=== PATIENT | female | born 1960 | race Caucasian/White ===

== ENCOUNTER 2023-11-20 08:05 | Observation (INO) | payer OTHER, SELFPAY ==
[2023-11-20] VITALS (103 sets, daily range): BP systolic 156–227; BP diastolic 75–173; PULSE 59–166; TEMP 36.5–36.9; O2SAT 91–97; BMI 28.2; BMI 26.6
--- NOTE | 2023-11-20 08:29 | ECG_ITS ---
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
--- NOTE | 2023-11-20 08:30 | CT_ITS ---
[address] [address] Patient Name: JOSE LUIS MALIN MRN: [id number] date: 1960 Sex: F Assigned Patient Location: ER Current Patient Location: .[facility] Accession/Order Number: [id number] Exam Date: 11/20/2023 10:04 Report Date: 11/20/2023 10:59 At the request of: CHAD CADET Procedure: CT angio chest EXAMINATION: CT angio chest HISTORY: Pulmonary embolism eval; shortness of breath COMPARISON: No relevant comparison available. TECHNIQUE: Multi-planar CT images were created with IV contrast. Axial, Coronal, and Sagittal images. Dose reduction techniques were achieved by using automated exposure control and/or adjustment of mA and/or kV according to patient size and/or use of iterative reconstruction technique. 3-D reconstruction was performed on a separate workstation. FINDINGS: VASCULATURE: No pulmonary edema. LUNGS: Mild emphysematous changes. Mild haziness of the lung parenchyma bilaterally without focal opacities/infiltrates. PLEURA: Bilateral pleural effusions; 1.8 cm in thickness on right, 0.8 cm on left. VIRIDIANA: Calcified lymph nodes compatible with chronic granulomatous disease. MEDIASTINUM: Calcified lymph nodes. CARDIAC: Cardiomegaly. No pericardial effusion. AORTA: No aneurysm or dissection. CHEST WALL: No mass or axillary adenopathy. BONES: L1 marked compression fracture with retropulsion of the posterior wall causing marked central canal narrowing. LIMITED ABDOMEN: No suspicious findings. Limited images of the upper abdomen. OTHER: Negative. CT/CT angio chest IMPRESSION: 1. No pulmonary embolism. 2. Moderate right, small left pleural effusions. 3. Bilateral mild pulmonary edema versus atelectasis. 4. Cardiomegaly. No pericardial effusion. 5. L1 marked compression fracture causing central canal narrowing. This is age indeterminant with no prior studies for comparison, but given the increased density of the remaining marrow cavity, I suspect there is at least an acute to subacute component. Electronically authenticated by: ANDER RAINEY Date: 11/20/2023 10:59
--- NOTE | 2023-11-20 08:35 | ED_ITS ---
HPI HPI - General Adult General Chief complaint: Shortness of Breath/Dyspnea Stated complaint: SOB Time Seen by Provider: 11/20/23 08:12 Source: patient Mode of arrival: walk-in Limitations: no limitations History of Present Illness HPI narrative: 63-year-old female to the emergency department with chief complaint of shortness of breath. Patient reports for the last month she has felt mildly short of breath. It limits her activity. She reports occasional squeezing sensation in her chest. She reports that she has had a mild intermittent cough. She is a daily smoker. She has been taking Claritin-D and NyQuil to try to help her symptoms however this has not improved it. She denies any cardiac history. No history of atrial fibrillation/a flutter. She has never seen a timekeeping supervisor. She denies any other medications. Related Data Home Medications ?Medication ?Instructions ?Recorded ?Confirmed No Known Home Medications 11/20/23 11/20/23 Allergies Allergy/AdvReac Type Severity Reaction Status Date / Time No Known Drug Allergies Allergy Verified 11/20/23 08:14 Opioid HPI Opioid Management Most Recent Opioid Data: Last Pain Assessment 11/20/23 16:00 Last ORT Total Score 0 11/20/23 12:56 Last ORT Risk Category Low Risk 11/20/23 12:56 Review of Systems ROS Status of ROS 10 or more systems reviewed and unremark able except as noted in history and below PFSH PFSH Surgical History (Updated 11/20/23 @ 13:14 by Alyse Parks RN) Hx of appendectomy ?Z90.49 - Acquired absence of other specified parts of digestive tract (ICD- 10) Family History (Updated 11/20/23 @ 16:00 by Alyse Parks RN) Other Family history of diabetes mellitus Family history of hypertension Family history of myocardial infarction Family history of stroke Social History (Updated 11/20/23 @ 13:20 by Alyse Parks RN) Within the past year, how often did you have a drink containing alcohol: 2-4 times a month Within the past year, how many standard drinks containing alcohol did you have on a typical day: 1 or 2 Within the past year, how often did you have six or more drinks on one occasion: never Total score: 0 Score interpretation: A score less than 3 is consistent with normal alcohol consumption. 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) Known occupational exposures/hazards: No Highest level of school completed/degree received: Associate degree: occupational, technical, vocational program Do you want help with school or training: No Are you now , , , , never or living with a partner: In a typical week, how many times do you talk on the telephone with family, friends, or neighbors: once per week How often do you get together with friends or relatives: never How often do you attend religious or orthodox services: never Do you belong to any clubs or organizations such as religious groups unions, fraternal or athletic groups, or school groups: no Total score: 1 Score interpretation: A score of less than or equal to 1 indicates the most socially isolated. Little interest or pleasure in doing things: not at all Feeling down, depressed, or hopeless: not at all Feel stressed/tense/nervous/anxious/difficulty sleeping: to some extent Life stressors: unknown source of stress Life stressor details: raising grandchild Due to disability, difficulty making decisions: No Do you think of yourself as: straight/heterosexual Gender Identity: female Exam Narrative Exam Narrative: VITALS: I have reviewed the triage vital signs. GENERAL: Well developed, well appearing adult in no acute distress. NEURO: Alert and oriented. Moves all extremities. Face is symmetric and expressive. EYES: PERRL. No scleral icterus or conjunctival injection. No discharge. HENT: Normocephalic, atraumatic. Hearing is grossly intact. Nares grossly patent and without discharge. Mucous membranes moist. NECK: No JVD. Patient moves neck without restriction. CARDIO: Rhythm regular. Tachycardic. No murmur, rub, or gallop. Pulses equal bilaterally in the upper and lower extremity. No lower extremity edema. PULM: Lungs clear to auscultation in all james. No wheezes, rales, or rhonchi. No conversational dyspnea. No splinting, stridor, or accessory muscle use. GI/: Abdomen is soft and non-tender. Normoactive bowel sounds. EXTREMITIES: Symmetric muscle bulk. No joint swelling. No clubbing, cyanosis, or deformity. SKIN: Warm and dry. Normal turgor. No rash or lesions appreciated. PSYCH: Mood, affect, and interaction is appropriate to the setting. Constitutional Vital Signs, click to edit/add: Last Vital Signs Temp 98.5 F 11/20/23 16:00 Pulse 105 H 11/20/23 15:45 Resp 19 11/20/23 16:00 BP 202/124 H 11/20/23 15:55 Pulse Ox 97 11/20/23 16:00 O2 Del Method Room Air 11/20/23 12:56 Course Vital Signs Vital signs: Vital Signs Temperature 97.9 F 11/20/23 08:10 Pulse Rate 118 H 11/20/23 08:10 Respiratory Rate 18 11/20/23 08:10 Blood Pressure 227/173 H 11/20/23 08:10 Pulse Oximetry 95 11/20/23 08:10 Oxygen Delivery Method Room Air 11/20/23 08:10 Temperature 98.5 F 11/20/23 16:00 Pulse Rate 105 H 11/20/23 15:45 Respiratory Rate 19 11/20/23 16:00 Blood Pressure 202/124 H 11/20/23 15:55 Pulse Oximetry 97 11/20/23 16:00 Oxygen Delivery Method Room Air 11/20/23 12:56 Medical Decision Making MDM Narrative Medical decision making narrative: 63-year-old female to the emergency department with chief complaint of shortness of breath ongoing for the last month. She is tachycardic and hypertensive. Otherwise stable vitals. The patient is afebrile. She is in no distress. EKG shows a sinus tachycardia with no ST changes. Telemetry monitoring is reviewed. She remains at a rate in the 150s with little variation. Concern for atrial flutter with 2:1 conduction vs atrial fibrillation with pseudonormalization given rate. Cardiac workup is initiated. CTA without evidence of pulmonary embolism. She does have pulmonary edema. Pleural effusions. L1 compression fracture. Compression fracture does not appear acute, no clinical correlation, no pain, no recent falls or injuries. Lab work reviewed and noted. Elevated troponin which is flat on repeats. Her BNP is significantly elevated. She will need mission for further workup of her atrial fibrillation and rapid ventricular response in the setting of congestive heart failure exacerbation. She denies any history of those prior. Heart rate did improve on Cardizem drip. Lasix was given. Case discussed the hospitalist who agreed admit the patient to his service. Medical Records Medical records reviewed: Yes I reviewed the patient's medical records Lab Data Lab results reviewed: Yes I reviewed the patient's lab results Labs: Lab Results 11/20/23 11/20/23 11/20/23 Range/Units 08:20 08:58 10:24 WBC 14.1 H (4.0-11.0) 10^3/uL RBC 4.32 (4.20-5.40) 10^6/uL Hgb 12.6 (12.0-16.0) g/dL Hct 38.7 (36.0-48.0) % MCV 89.6 (81.0-99.0) fL MCH 29.2 (26.7-34.0) pg MCHC 32.6 (29.9-35.2) g/dL RDW 14.1 (11.0-15.0) % Plt Count 372 (150-450) 10^3/uL MPV 9.6 (9.5-13.5) fL Neut % (Auto) 80.2 H (43.0-75.0) % Lymph % (Auto) 13.4 L (20.5-60.0) % [place] % (Auto) 5.7 (1.7-12.0) % Eos % (Auto) 0.1 L (0.9-7.0) % Baso % (Auto) 0.3 (0.2-2.0) % Neut # (Auto) 11.3 H (1.4-6.5) 10^3/uL Lymph # (Auto) 1.9 (1.2-3.8) 10^3/uL [place] # (Auto) 0.8 (0.3-0.8) 10^3/uL Eos # (Auto) 0.0 (0.0-0.7) 10^3/uL Baso # (Auto) 0.0 (0.0-0.1) 10^3/uL Abs Immat Gran (auto) 0.04 H (0.00-0.03) 10^3/uL Imm/Tot Granulo (auto) 0.3 (0.0-0.5) % PT 10.5 (9.0-11.6) sec INR 0.99 APTT 29.8 (22.3-36.2) sec Sodium 139 (136-145) mmol/L Potassium 3.7 (3.5-5.1) mmol/L Chloride 102 (98-107) mmol/L Carbon Dioxide 26.7 (21.0-32.0) mmol/L Anion Gap 14.0 BUN 18.0 (7.0-18.0) mg/dL Creatinine 1.14 H (0.55-1.02) mg/dL Est GFR ( Amer) 58 L (>=60) Est GFR (Non-Af Amer) 48 L (>=60) BUN/Creatinine Ratio 15.8 Glucose 110 H (74-106) mg/dL Calcium 9.2 (8.5-10.1) mg/dL Magnesium 2.2 (1.8-2.4) mg/dL Troponin I High Sens 75.2 H* 75.9 H* (4.0-51.3) pg/mL NT-Pro-B Natriuret Pep 10356.0 H* (<=900.0) pg/mL TSH & Free T4 Interp (0.358-3.740) uIU/mL 11/20/23 Range/Units 11:48 WBC (4.0-11.0) 10^3/uL RBC (4.20-5.40) 10^6/uL Hgb (12.0-16.0) g/dL Hct (36.0-48.0) % MCV (81.0-99.0) fL MCH (26.7-34.0) pg MCHC (29.9-35.2) g/dL RDW (11.0-15.0) % Plt Count (150-450) 10^3/uL MPV (9.5-13.5) fL Neut % (Auto) (43.0-75.0) % Lymph % (Auto) (20.5-60.0) % [place] % (Auto) (1.7-12.0) % Eos % (Auto) (0.9-7.0) % Baso % (Auto) (0.2-2.0) % Neut # (Auto) (1.4-6.5) 10^3/uL Lymph # (Auto) (1.2-3.8) 10^3/uL [place] # (Auto) (0.3-0.8) 10^3/uL Eos # (Auto) (0.0-0.7) 10^3/uL Baso # (Auto) (0.0-0.1) 10^3/uL Abs Immat Gran (auto) (0.00-0.03) 10^3/uL Imm/Tot Granulo (auto) (0.0-0.5) % PT (9.0-11.6) sec INR APTT (22.3-36.2) sec Sodium (136-145) mmol/L Potassium (3.5-5.1) mmol/L Chloride (98-107) mmol/L Carbon Dioxide (21.0-32.0) mmol/L Anion Gap BUN (7.0-18.0) mg/dL Creatinine (0.55-1.02) mg/dL Est GFR ( Amer) (>=60) Est GFR (Non-Af Amer) (>=60) BUN/Creatinine Ratio Glucose (74-106) mg/dL Calcium (8.5-10.1) mg/dL Magnesium (1.8-2.4) mg/dL Troponin I High Sens 79.7 H* (4.0-51.3) pg/mL NT-Pro-B Natriuret Pep (<=900.0) pg/mL TSH & Free T4 Interp 2.734 (0.358-3.740) uIU/mL Imaging Data CT scan - chest: Attestation: I have reviewed the pertinent imaging results. (Atrial fibrillation with rapid ventricular response. No STEMI. Normal QTc) Radiologist's impression: ITS Impressions Chest CTA 11/20/23 08:30 IMPRESSION: 1. No pulmonary embolism. 2. Moderate right, small left pleural effusions. 3. Bilateral mild pulmonary edema versus atelectasis. 4. Cardiomegaly. No pericardial effusion. 5. L1 marked compression fracture causing central canal narrowing. This is age indeterminant with no prior studies for comparison, but given the increased density of the remaining marrow cavity, I suspect there is at least an acute to subacute component. Electronically authenticated by: ANDER RAINEY Date: 11/20/2023 10:59 ECG Data Attestation: I personally reviewed and interpreted this ECG as follows: (Atrial fibrillation with rapid ventricular response. No STEMI. Normal QTc.) Critical Care Time Critical Care Time Critical Care Time: Yes Total Critical Care Time: 35 Attestation: Critical Care Procedure Note Authorized and Performed by: Terry Hoover DO Total critical care time: 35 min Due to a high probability of clinically significant, life threatening deterioration, the patient required my highest level of preparedness to intervene emergently and I personally spent this critical care time directly and personally managing the patient. This critical care time included obtaining a history; examining the patient; pulse oximetry; ordering and review of studies; arranging urgent treatment with development of a management plan; evaluation of patient's response to treatment; frequent reassessment; and, discussions with other providers. This critical care time was performed to assess and manage the high probability of imminent, life-threatening deterioration that could result in multi-organ failure. It was exclusive of separately billable procedures and treating other patients and teaching time. Please see MDM section and the rest of the note for further information on patient assessment and treatment. Discharge Plan Discharge Chief Complaint: Shortness of Breath/Dyspnea Clinical Impression: Acute exacerbation of CHF (congestive heart failure), Atrial fibrillation with rapid ventricular response Patient Disposition: Admitted As Inpatient Time of Disposition Decision: 12:28 Condition: Fair Discharge Date/Time: 11/20/23 12:49
[2023-11-20 08:40] LABS: Basophils Percent Auto 0.3 % (0.2-2.0); Eosinophils Percent Auto 0.1 % (0.9-7.0); Hematocrit 38.7 % (36.0-48.0); Hemoglobin 12.6 g/dL (12.0-16.0); Immature Granulocytes Abs Auto 0.04 10^3/uL (0.00-0.03); Immature Granulocytes Pct Auto 0.3 % (0.0-0.5); Lymphocytes Absolute Auto 1.9 10^3/uL (1.2-3.8); Lymphocytes Percent Auto 13.4 % (20.5-60.0); Mean Corpuscular HGB Conc 32.6 g/dL (29.9-35.2); Mean Corpuscular Hemoglobin 29.2 pg (26.7-34.0); Mean Corpuscular Volume 89.6 fL (81.0-99.0); Mean Platelet Volume 9.6 fL (9.5-13.5); Monocytes Absolute Auto 0.8 10^3/uL (0.3-0.8); Monocytes Percent Auto 5.7 % (1.7-12.0); Neutrophils Absolute Auto 11.3 10^3/uL (1.4-6.5); Neutrophils Percent Auto 80.2 % (43.0-75.0); Platelet Count 372 10^3/uL (150-450); Red Blood Count 4.32 10^6/uL (4.20-5.40); Red Cell Distribution Width 14.1 % (11.0-15.0); White Blood Count 14.1 10^3/uL (4.0-11.0)
[2023-11-20 09:02] LABS: BUN Creatinine Ratio 15.8; Calcium 9.2 mg/dL (8.5-10.1); Carbon Dioxide 26.7 mmol/L (21.0-32.0); Chloride 102 mmol/L (98-107); Estimated GFR (African America 58 (>=60); Estimated GFR (Non-African Ame 48 (>=60); Glucose 110 mg/dL (74-106); Magnesium 2.2 mg/dL (1.8-2.4); Potassium 3.7 mmol/L (3.5-5.1); Sodium 139 mmol/L (136-145)
[2023-11-20 09:04] LABS: Troponin I High Sensitivity 75.2 pg/mL (4.0-51.3)
[2023-11-20 09:20] LABS: INR 0.99; Partial Thromboplastin Time 29.8 sec (22.3-36.2); Prothrombin Time 10.5 sec (9.0-11.6)
--- NOTE | 2023-11-20 09:55 | ECG_ITS ---
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
[2023-11-20 10:51] LABS: Troponin I High Sensitivity 75.9 pg/mL (4.0-51.3)
[2023-11-20] MEDS: DILTIAZEM HCL 25 MG/5 ML VIAL 15 MG IV (11:14)
[2023-11-20] MEDS: FUROSEMIDE 40 MG/4 ML VIAL IVP ×2 (11:15→21:32)
[2023-11-20] MEDS: dilTIAZem HCL 125 MG in 0.9 % SODIUM CHLORIDE 100 ML IV (11:44)
[2023-11-20 12:13] LABS: Troponin I High Sensitivity 79.7 pg/mL (4.0-51.3)
--- NOTE | 2023-11-20 14:13 | ECG_ITS ---
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
--- NOTE | 2023-11-20 14:27 | ECG_ITS ---
The [facility] Test Date: 2023-11-20 Pat Name: JOSE LUIS MALIN Department: Room: 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
--- NOTE | 2023-11-20 14:44 | CA_ITS ---
Patient Name: JOSE LUIS MALIN MR#: [id number] : 1960 Exam Date: 11/20/2023 Ordering Doctor: DR REEMA NICHOLS . ECHOCARDIOGRAM REPORT PROCEDURE: CA ECHO DOPPLER COMPLETE INDICATIONS: CHF, elevated TROP and BNP, atrial fibrillation COMPARISON: None. DESCRIPTION: COMPLETE ECHOCARDIOGRAM Real-time transthoracic echocardiography with 2D, M-mode, spectral and color flow Doppler performed. QUALITY: Technical quality was good. LEFT VENTRICLE: Normal chamber size. Moderate to severe left ventricular hypertrophy. No evidence of increased LVOT gradients. LV EF: Global left ventricular systolic function is normal; visually estimated ejection fraction is 60 to 65%. No obvious wall motion abnormalities. DIASTOLIC: Not adequately assessed due to heart rhythm. ATRIAL SEPTUM: Visually appears intact. LEFT ATRIUM: Severe dilatation. RIGHT ATRIUM: Moderate dilatation. RIGHT VENTRICLE: Mild dilatation. Normal right ventricular systolic function. TRICUSPID VALVE: Normal mobility and thickness. No stenosis with trivial regurgitation. Unable to assess right-sided pressures due to lack of measurable tricuspid regurgitation. MITRAL VALVE: Mildly thickened with normal mobility. No evidence of mitral valve stenosis. There is no mitral annular calcification. Mild to moderate mitral regurgitation. AORTIC VALVE: Normal trileaflet appearance. No visible sclerosis. Normal leaflet mobility. No evidence of aortic valve stenosis. No aortic regurgitation. AORTIC ROOT: Normal diameter and appearance. PULMONIC VALVE: Normal thickness and mobility. No stenosis. No regurgitation. PERICARDIUM: No evidence of pericardial effusion. IVC: Collapses with inspirations. IVC is normal in size. CONCLUSION: 1. Global left ventricular systolic function is normal; visually estimated ejection fraction is 60 to 65% 2. The right ventricle is mildly dilated with normal systolic function 3. Biatrial enlargement 4. Moderate to severe left ventricular hypertrophy 5. Mild to moderate mitral regurgitation Adult Echocardiography Procedure Report Left Ventricle LVEDD (3.7 - 5.6 cm): 4.08 cm LVESD (2.2 - 4.0 cm): 2.80 cm LVIVS thickness (0.6 - 1.2 cm): 1.7 cm LVPW thickness (0.5 - 1.0 cm): 1.4 cm LVOT Max Gradient: 4.47 mm[Hg], 4.47 mm[Hg] LVOT Area (cm2): 1.06 m/s Peak Velocity (LVOT): 1.06 m/s, 1.06 m/s Mean Velocity (LVOT): 0.74 m/s LVOT Diameter 2.00 cm Left Atrium LA Volume Index (2D A2C): 67.94 ml/m2 Left Atrium Systolic Dimension: 4.52 cm Mitral Valve Mitral Valve E-Wave Peak Velocity: 0.50 m/s Right Ventricle Aorta AO Root Diam: 3.38 cm Aortic Valve AoV Area (Peak Kvng): 3.57 cm2, 3.57 cm2 Peak Velocity(Antegrade Flow): 0.93 m/s Peak Gradient(Antegrade Flow): 3.48 mm[Hg] Tricuspid Valve Pulmonic Valve Peak Velocity: 0.74 m/s Peak Gradient: 2.48 mm[Hg], 1.93 mm[Hg] Right Atrium Right Atrium Systolic Pressure: 57.97 ml, 57.97 ml Dictated by: Alondra Blakely M.D. on 11/20/2023 at 15:58 Approved by: Alondra Blakely M.D. on 11/20/2023 at 16:04
[2023-11-20] MEDS: HYDRALAZINE HCL 20 MG/ML VIAL 10 MG IVP ×2 (15:36→19:32)
[2023-11-20 15:41] LABS: TSH W/ REFLEX FT4 2.734 uIU/mL (0.358-3.740)
[2023-11-20] MEDS: METOPROLOL TARTRATE 25 MG TABLET PO ×2 (16:22→21:32)
--- NOTE | 2023-11-20 18:42 | PC.NURSE ---
Metoprolol started at 1630 per orders from physician due elevate BPs. Will continue to monitor patient and take frequent VS. See eMAR and documentation.
[2023-11-20] MEDS: APIXABAN 5 MG TABLET PO (21:32)
[2023-11-21] VITALS (55 sets, daily range): BP systolic 144–161; BP diastolic 84–108; PULSE 61–92; TEMP 36.6–36.8; O2SAT 92–97; BMI 27.0
[2023-11-21 05:20] LABS: Basophils Percent Auto 0.2 % (0.2-2.0); Eosinophils Absolute Auto 0.1 10^3/uL (0.0-0.7); Hematocrit 38.3 % (36.0-48.0); Hemoglobin 12.2 g/dL (12.0-16.0); Immature Granulocytes Abs Auto 0.02 10^3/uL (0.00-0.03); Immature Granulocytes Pct Auto 0.2 % (0.0-0.5); Lymphocytes Absolute Auto 1.9 10^3/uL (1.2-3.8); Lymphocytes Percent Auto 19.8 % (20.5-60.0); Mean Corpuscular HGB Conc 31.9 g/dL (29.9-35.2); Mean Corpuscular Hemoglobin 28.5 pg (26.7-34.0); Mean Corpuscular Volume 89.5 fL (81.0-99.0); Mean Platelet Volume 9.5 fL (9.5-13.5); Monocytes Absolute Auto 0.9 10^3/uL (0.3-0.8); Monocytes Percent Auto 9.5 % (1.7-12.0); Neutrophils Absolute Auto 6.5 10^3/uL (1.4-6.5); Neutrophils Percent Auto 69.3 % (43.0-75.0); Platelet Count 347 10^3/uL (150-450); Red Blood Count 4.28 10^6/uL (4.20-5.40); Red Cell Distribution Width 14.3 % (11.0-15.0); White Blood Count 9.4 10^3/uL (4.0-11.0)
[2023-11-21 06:29] LABS: Anion Gap 13.1; BUN Creatinine Ratio 18.9; Calcium 9.2 mg/dL (8.5-10.1); Chloride 96 mmol/L (98-107); Estimated GFR (African America 54 (>=60); Estimated GFR (Non-African Ame 44 (>=60); Glucose 93 mg/dL (74-106); Potassium 3.1 mmol/L (3.5-5.1); Sodium 137 mmol/L (136-145)
[2023-11-21] MEDS: APIXABAN 5 MG TABLET PO (09:13)
[2023-11-21] MEDS: LOSARTAN POTASSIUM 25 MG TABLET PO (09:13)
[2023-11-21] MEDS: METOPROLOL TARTRATE 25 MG TABLET PO (09:13)
[2023-11-21] MEDS: FUROSEMIDE 40 MG/4 ML VIAL IVP (09:14)
[2023-11-21] MEDS: POTASSIUM CHLORIDE 10 MEQ ER TABLET 20 MEQ PO (09:14)
--- NOTE | 2023-11-21 10:58 | PM.HP ---
HPI H&P: HPI History of Present Illness Chief complaint: SOB/A FIB/ RVR/ CHF Narrative: 63 y/o female with no home medication presents to ER with SOB x 1 month. Reports about 8 years since seen by PCP. C/o SOB with exertion and getting worse. Mild cough and sputum. SOB started to limit activity and mild chests discomfort. Started claritin-D for presumed allergies but no change in symptoms. C/o SOB when laying flat but not notice any edema. To ER and found rapid afib. CTA negative for PE but showed pulmonary edema. BNP elevated and troponin mildly elevated but stable. Admitted for treatment. Initially given IV cardizem and started drip but weaned off. Converted back to NSR and started oral metoprolol. BP remains elevated and added losartan. Getting IV lasix and good urine output. Feels well this am and SOB resolved. Opioid HPI Opioid Management Most Recent Pain and Opioid Data: Last Pain Assessment 11/21/23 10:00 Last ORT Total Score 0 11/20/23 12:56 Last ORT Risk Category Low Risk 11/20/23 12:56 Review of Systems ROS Constitutional Denies: fever, chills or fatigue Cardiovascular Denies: chest pain, palpitations or edema Respiratory Reports: shortness of breath and cough; Denies: wheezing Gastrointestinal Denies: abdominal pain, nausea, vomiting or diarrhea Genitourinary Denies: painful urination PFSH PFS Medical History (Updated 11/21/23 @ 10:55 by Haris Anguiano MD) Paroxysmal atrial fibrillation ?I48.0 - Paroxysmal atrial fibrillation (ICD-10) Chronic heart failure with preserved ejection fraction (HFpEF) ?I50.32 - Chronic diastolic (congestive) heart failure (ICD-10) Acute exacerbation of CHF (congestive heart failure) ?I50.9 - Heart failure, unspecified (ICD-10) Surgical History (Updated 11/20/23 @ 13:14 by Alyse Parks RN) Hx of appendectomy ?Z90.49 - Acquired absence of other specified parts of digestive tract (ICD-10) Family History (Updated 11/20/23 @ 16:00 by Alyse Parks RN) Other Family history of diabetes mellitus Family history of hypertension Family history of myocardial infarction Family history of stroke Social History (Updated 11/20/23 @ 13:20 by Alyse Teal, RN) Within the past year, how often did you have a drink containing alcohol: 2-4 times a month Within the past year, how many standard drinks containing alcohol did you have on a typical day: 1 or 2 Within the past year, how often did you have six or more drinks on one occasion: never Total score: 0 Score interpretation: A score less than 3 is consistent with normal alcohol consumption. 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) Known occupational exposures/hazards: No Highest level of school completed/degree received: Associate degree: occupational, technical, vocational program Do you want help with school or training: No Are you now , , , , never or living with a partner: In a typical week, how many times do you talk on the telephone with family, friends, or neighbors: once per week How often do you get together with friends or relatives: never How often do you attend confucianism or lutheran services: never Do you belong to any clubs or organizations such as confucianism groups unions, fraternal or athletic groups, or school groups: no Total score: 1 Score interpretation: A score of less than or equal to 1 indicates the most socially isolated. Little interest or pleasure in doing things: not at all Feeling down, depressed, or hopeless: not at all Feel stressed/tense/nervous/anxious/difficulty sleeping: to some extent Life stressors: unknown source of stress Life stressor details: raising grandchild Due to disability, difficulty making decisions: No Do you think of yourself as: straight/heterosexual Gender Identity: female Meds Home Medications and Allergies Home Medications ?Medication ?Instructions ?Recorded ?Confirmed ?Type No Known Home Medications 11/20/23 11/20/23 History apixaban 5 mg tablet (Eliquis) 5 mg PO BID #60 tabs 11/21/23 Rx furosemide 40 mg tablet 40 mg PO DAILY #30 tabs 11/21/23 Rx losartan 25 mg tablet 25 mg PO QD #30 tabs 11/21/23 Rx metoprolol tartrate 25 mg tablet 25 mg PO BID #60 tabs 11/21/23 Rx potassium chloride 20 mEq 20 meq PO DAILY #30 tabs 11/21/23 Rx tablet,extended release Allergies Allergy/AdvReac Type Severity Reaction Status Date / Time No Known Drug Allergies Allergy Verified 11/20/23 08:14 Exam Constitutional Vital Signs, click to edit/add: Last Vital Signs Temp 98.3 F 11/21/23 07:44 Pulse 92 H 11/21/23 10:00 Resp 17 11/21/23 10:00 BP 157/84 H 11/21/23 07:44 Pulse Ox 97 11/21/23 07:44 O2 Del Method Room Air 11/20/23 12:56 Documenting provider has reviewed patient's vital signs: yes Common normals: no apparent distress, oriented x3 and alert HENMT Common normals: normocephalic Eye Common normals: PERRL and EOMs intact bilaterally Respiratory Common normals: normal respiratory effort and clear to auscultation bilaterally Cardio Common normals: regular rate, regular rhythm, no gallops, no murmurs and no rub GI Common normals: Normal to inspection, nondistended, normoactive bowel sounds present and non-tender Extremity Common normals: no pedal edema Results Labs Labs: Short CBC 11/21/23 Range/Units 04:54 WBC 9.4 (4.0-11.0) 10^3/uL Hgb 12.2 (12.0-16.0) g/dL Hct 38.3 (36.0-48.0) % Plt Count 347 (150-450) 10^3/uL BMP 11/21/23 04:54 Sodium 137 Potassium 3.1 L Chloride 96 L Carbon Dioxide 31.0 BUN 23.0 H Creatinine 1.22 H Glucose 93 Calcium 9.2 Assessment and Plan Assessment and Plan (1) Acute heart failure with preserved ejection fraction (HFpEF): (2) Atrial fibrillation with rapid ventricular response: (3) Benign essential hypertension: Plan Presented with new onset afib and CHF. Found HTN and likely uncontrolled for years. Echo showed normal EF of 60-65%. Patient significantly improved with treatment. Will continue lasix 40 mg daily and add potassium. Continue metoprolol and losartan. Started on Eliquis. Will arrange for cardiology follow up in 1-2 weeks. Patient will need to establish with new PCP.
--- NOTE | 2023-11-21 11:54 | CM.NOTE ---
11/20) 09:[address]. [address] Anguiano discussed labs, diagnoses and meds with Maisha. Maisha verbalized understanding. Plan is for discharge today and to see cardiology as outpatient and explained to patient that she will need to get a PCP for followup.
--- NOTE | 2023-11-21 12:09 | SWNOTE1 ---
Pt is being discharged on Eliquis, which is new for her. SW provided her with free 3 day trial offer card that we have. SW let pt know to call SW if she has any issues with card. Pt voiced understanding.
--- NOTE | 2023-11-22 15:23 | CM.DCFOLLOWU ---
1st attempt 11/22/23
--- NOTE | 2023-11-23 15:30 | CM.DCFOLLOWU ---
Person spoke with: patient How are you feeling? well How is your pain? none Did you understand your discharge instructions? yes Do you have any questions about your discharge instructions? no Were you given any prescriptions at discharge? yes Were you able to get your prescriptions filled? yes Do you understand how to take your medications as ordered? yes Do you have any questions about your follow up appointment and do you plan to keep your follow up appointment? no questions, follow ups reviewed Is there anything else that you would like to discuss? no Questions/Comments/Concerns/Other: no
== END 2023-11-21 12:11 | disposition home or self-care (01) ==
LOC: ER 12:28 → ICU 11-21 07:40
PROVIDERS: Admitting Provider Family Medicine; Emergency Provider Student in an Organized Health Care Education/Training Program; Visit Provider Family Medicine
DX: I48.91 Unspecified atrial fibrillation (principal); F17.210 Nicotine dependence, cigarettes, uncomplicated; I11.0 Hypertensive heart disease with heart failure; I50.31 Acute diastolic (congestive) heart failure
CPT/HCPCS: 36415; 71275; 80048; 83735; 83880; 84443; 84484; 85025; 85610; 85730; 93005; 93306; 96365; 96366; 96375; 96376; 99285; G0378; J0360; J1940; Q9967

== ENCOUNTER 2023-11-28 08:51 | Outpatient (OUT) | payer OTHER, SELFPAY ==
--- NOTE | 2023-11-28 09:00 | RT_ITS ---
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 Findings were considered accurate and reproducible, with exception of DLCO which did not meet ATS standards. Both pre- and post-bronchodilator values utilized for spirometry. Spirometry (based on pre-bronchodilator values): -FEV1/FVC: Reduced @ 69% -FEV1: Moderately reduced @ 52% -FVC: Reduced @ 58% -OTJ23-44%: Reduced @ 32% -There is a positive bronchodilator response in FEV1. Lung volumes by plethysmography: -RV: Increased @ 125% -TLC: Normal @ 93% Diffusion capacity: -DLCO: Moderate reduction @ 67% when corrected for Hb 12.2g/dL Impressions: -Spirometry suggests moderate obstruction. There is a positive bronchodilator response. An elevated RV suggests air trapping. There is a moderately reduced diffusion capacity. Overall study suggests asthma-COPD overlap or COPD with a positive bronchodilator response. Clinical correlation required. Electronically Signed On 11-28-2023 17:46:37 EDT by Devan Park
[2023-11-28] MEDS: ALBUTEROL SULFATE 2.5 MG/3 ML VIAL NEB IH (10:18)
== END 2023-11-28 08:52 | disposition home or self-care (01) ==
LOC: CARD 08:51
PROVIDERS: Visit Provider Internal Medicine Cardiovascular Disease
DX: R06.02 Shortness of breath (principal)
CPT/HCPCS: 94060; 94726; 94729

== ENCOUNTER 2023-12-09 08:30 | Outpatient (OUT) | payer OTHER, SELFPAY ==
[2023-12-09 09:09] LABS: BUN Creatinine Ratio 20.8; Calcium 9.2 mg/dL (8.5-10.1); Carbon Dioxide 27.3 mmol/L (21.0-32.0); Chloride 104 mmol/L (98-107); Chol HDL Ratio 3.5; Cholesterol 229 mg/dL (<=200); Estimated GFR (African America 52 (>=60); Estimated GFR (Non-African Ame 43 (>=60); Glucose 100 mg/dL (74-106); HDL Cholesterol 66 mg/dL (40-60); Potassium 4.3 mmol/L (3.5-5.1); Sodium 139 mmol/L (136-145); Triglycerides 109 mg/dL (<=150); VLDL CHOLESTEROL 21.8 mg/dL
== END 2023-12-09 08:31 | disposition home or self-care (01) ==
LOC: LAB 08:30
PROVIDERS: Visit Provider Internal Medicine Cardiovascular Disease
DX: I50.41 Acute combined systolic (congestive) and diastolic (congestive) heart failure (principal); E78.5 Hyperlipidemia, unspecified
CPT/HCPCS: 36415; 80048; 80061

== ENCOUNTER 2025-01-04 16:35 | Emergency (ER) | payer MEDICARE, OTHER, SELFPAY ==
[2025-01-04 16:44] VITALS: PULSE 85; TEMP 37.2; O2SAT 97; BMI 28.3
--- OUTSIDE RECORDS SUMMARY | 2025-01-04 16:46 | XMS_ITS | CCD ---
Author Organization [facility] Care Team Providers Care Career Consultant Name Role Phone Elena Hernández Unavailable Anabel Hamilton Admitting Unavailable Anabel Hamilton Attending Unavailable NO FAMILY, PHYSICIAN Primary Care Unavailable JUSTIN WASHINGTON Attending UnavailCHARLY Vang Attending Unavailable JUSTIN WASHINGTON Referring UnavailCHARLY Vang Attending Unavailable JUSTIN WASHINGTON Referring UnavailLINDA Welch Attending Unavailable Allergies Allergy Classification Reported Allergen(s) Allergy Type Date of Onset Reaction(s) Facility (1 source) Aspirin / oxyCODONE Drug Allergy didnt like the PlasmaSi Other Medications Current Medications Medication Drug Class(es) Dates Sig (Normalized) Sig (Original) cyclobenzaprine hydrochloride 10 mg oral tablet (1 source) Muscle Relaxant Start: 10-04-2022 take 1 tablet by mouth three times daily as needed for pain Cyclobenzaprine HCl 10 MG 1 tablet Orally TID PRN back pain for 7 days September, Active Completed/Discontinued Medications Medication Drug Class(es) Dates Sig (Normalized) Sig (Original) Ascorbic Acid (1 source) Vitamin C Vitamin C Not-Taking doxycycline monohydrate 100 mg oral capsule (1 source) Tetracycline-clas s Drug Start: 12-27-2019 take 1 capsule by mouth every twelve hours Doxycycline Monohydrate 100 MG 1 capsule Orally every 12 hrs for 7 days Dec, Not-Taking Flex-a-min Super Glucosamine (1 source) Flex-a-min Super Glucosamine Not-Taking Problems Problem Classification Problem Date Documented Da te Episodic/Chronic Cardiac dysrhythmias (2 sources) Paroxysmal atrial fibrillation; Translations: [Paroxysmal atrial fibrillation] Onset: 11-22-2023 Chronic Congestive heart failure; nonhypertensive (2 sources) Acute combined systolic (congestive) and diastolic (congestive) heart failure; Translations: [Acute combined systolic (congestive) and diastolic (congestive) heart failure] Onset: 11-22-2023 Chronic Disorders of lipid metabolism (2 sources) Hyperlipidemia, unspecified; Translations: [Hyperlipidemia, unspecified] Onset: 11-22-2023 Chronic Essential hypertension (1 source) Elevated blood pressure; Translations: [Essential (primary) hypertension] Chronic Genitourinary symptoms and ill-defined conditions (1 source) Dysuria; Translations: [Dysuria] Onset: 10-04-2022 Episodic Hypertension with complications and secondary hypertension (2 sources) Hypertensive heart disease with heart failure; Translations: [Hypertensive heart disease with heart failure] Onset: 11-22-2023 Chronic Results Test Name Value Interpretation Reference Range Facility 36on 01-26-2024 36 MD Lacey Buckley MA Please first verify her medications Coreg 25 mg twice daily, Cozaar 50 mg daily, Lasix 40 mg daily, and amlodipine 5 mg daily If she is taking all those medications right, please let her bring her blood pressure machine to our office and verify that it is accurate. If it is accurate, let her increase amlodipine to 10 mg daily and continue the rest of medications and check the blood pressure morning and evening for another 2 weeks and send the log. Thank you Patient called back to confirm she is taking: Carvedilol 25mg bid Amlodipine 5mg daily Furosemide 40mg daily She was unable to find losartan. Patient was very confused with me pronouncing and spelling medications to her over the phone. I asked if an email would be better for her and she said yes. I then sent the following email to her: Kaleb Ferrera. Here is a list of the medication changes Dr. Anthony has made for you. 11/22/2023: She increased your losartan to 50mg daily and increased your metoprolol tartrate to 50mg twice a day. Then you brought in a list of your blood pressure readings and on 01/01/2024 she made the following changes: STOP metoprolol tartrate START carvedilol (Coreg) 25mg twice a day START amlodipine 5mg daily On 01/04/2024 she started you on atorvastatin (Lipitor) 40mg daily for better cholesterol control. When I was speaking with you on the phone, it didn't sound like you had any losartan 50mg tablets. We sent them to [facility] in November. If you still have the 25mg tablets, you can double them up. Please let me know if you HAVE or HAVE NOT been taking losartan. Dr. Anthony would like to make sure. Thanks so much and have a good weekend! Waiting for patient to either call me or email me back. Normal [facility] Telephoneon 01-26-2024 Telephone [id number] ArpitJose Luis Dariela 1960 F [facility] Provider Department [place] 01/26/2024 CARLY TYLER Family History Problem Relation Age of Onset Heart attack Father Family Status - Relation Status Age at Father [facility] 36on 01-03-2024 36 Regarding PFT's from 11/28/2023: MD Carly Buckley MA There is evidence of moderate COPD with positive response to bronchodilators. There is also reduced DLCO. Please refer her to pulmonary. Please advise to stop smoking [facility] Office Visiton 11-22-2023 Follow-up visit [id number] ArpitJose Luis Lyle 1960 Provider Department [place] 11/22/2023 [id number] BRADY Family History Problem Relation Age of Onset Heart attack Father Family Status - Relation Status Age at Father Level of Service:09615 [place] OFFICE/OUTPATIENT NEW MODERATE MDM 45 MINUTES Normal [facility] Dipstick and Microscopicon 0 10-04-2022 Appearance (U) Cloudy Critically abnormal Clear F [facility] Comment on above: Order Comment: Name Collection Type:: Voided Performed By: #### A DDONUAPLUS, CUU #### [facility] [address] [place] [address] [place] Bacteria,Urine 1+ High None Seen [facility] Comment on above: Order Comment: Name Collection Type:: Voided Performed By: #### A DDONUAPLUS, CUU #### [facility] [address] [place] [id number] [place] Bilirubin,Urine Negative Normal Negative [facility] Comment on above: Order Comment: Name Collection Type:: Voided Performed By: #### A DDONUAPLUS, CUU #### [place] [address] [place] Color (U) Dark Yellow Critically abnormal Yellow [facility] Comment on above: Order Comment: Name Collection Type:: Voided Performed By: #### A DDONUAPLUS, CUU #### [address] Glucose Ql (U) Normal Normal Normal [facility] Comment on above: Order Comment: Name Collection Type:: Voided Performed By: #### A DDONUAPLUS, CUU #### [place] [address] [place] Hyaline Casts,Urine 1-2 High 0-1 [facility] Comment on above: Order Comment: Name Collection Type:: Voided Performed By: #### A DDONUAPLUS, CUU #### [address] Ketones Ql (U) Negative Normal Negative [facility] Comment on above: Order Comment: Name Collection Type:: Voided Performed By: #### A DDONUAPLUS, CUU #### [address] Leukocyte esterase Test strip Ql (U) 1+ High Negative [facility] Comment on above: Order Comment: Name Collection Type:: Voided Performed By: #### A DDONUAPLUS, CUU #### [place] [address] [place] Nitrite,Urine Negative Normal Negative [facility] Comment on above: Order Comment: Name Collection Type:: Voided Performed By: #### A DDONUAPLUS, CUU #### [address] Occult Blood,Urine Negative Normal Negative [facility] Comment on above: Order Comment: Name Collection Type:: Voided Result Comment: PERF ORMED BY: [place] [address] PATHOLOGIST PAD HAND GENIA BRANTLEY M.D. Performed By: #### A DDONUAPLUS, CUU #### [address] Other Casts,Urine None Seen Normal None Seen [facility] Comment on above: Order Comment: Name Collection Type:: Voided Result Comment: PERF ORMED BY: [place] [address] PATHOLOGIST PAD HAND GENIA BRANTLEY M.D. Performed By: #### A DDONUAPLUS, CUU #### [address] pH (U) 5.0 [pH] Normal 5.0-9.0 [facility] Comment on above: Order Comment: Name Collection Type:: Voided Performed By: #### A DDONUAPLUS, CUU #### [address] Protein (U) [Mass/Vol] 100 mg/dL High Negative [facility] Comment on above: Order Comment: Name Collection Type:: Voided Performed By: #### A DDONUAPLUS, CUU #### [address] RBC,Urine 3-4 Normal 0-4 [facility] Comment on above: Order Comment: Name Collection Type:: Voided Performed By: #### A DDONUAPLUS, CUU #### [address] Renal Epithelial Cells,Urine 1-2 High 0-1 [facility] Comment on above: Order Comment: Name Collection Type:: Voided Performed By: #### A DDONUAPLUS, CUU #### [address] Specificy [place],Urine 1.027 Normal 1.001-1.030 [facility] Comment on above: Order Comment: Name Collection Type:: Voided Performed By: #### A DDONUAPLUS, CUU #### [place] [id number] [facility] Squamous Epithelial Cell,Urine 10-19 High 0-2 [facility] Comment on above: Order Comment: Name Collection Type:: Voided Performed By: #### A DDONUAPLUS, CUU #### [facility] [address] [place] [address] Urobilinogen,Urine Normal Normal Normal [facility] Comment on above: Order Comment: Name Collection Type:: Voided Performed By: #### A DDONUAPLUS, CUU #### [facility] [address] [place] [id number] [facility] WBC,Urine 10-19 High 0-4 [facility] Comment on above: Order Comment: Name Collection Type:: Voided Performed By: #### A DDONUAPLUS, CUU #### [address] Urine Cultureon 10-04-2022 Bacteria identified Cx Nom (U) 15,000 colonies/ml mixed bacterial skin contaminants 2 Days PERFORMED BY: [place] [address] PATHOLOGIST PAD HAND GENIA BRANTLEY M.D. [facility] Comment on above: Performed By: #### A DDONUAPLUS, CUU #### [facility] [address] [place] [address] Encounters Encounter Date Encounter Type Care Provider Facility Start: 01-03-2024 End: 01-03-2024 ambulatory CHARLY CAZARES Not Available Start: 12-28-2023 End: 12-28-2023 ambulatory CHARLY CAZARES Not Available Start: 12-19-2023 End: 12-19-2023 ambulatory JUSTIN WASHINGTON Not Available Start: 11-22-2023 End: 11-22-2023 ambulatory [facility] Start: 10-11-2022 End: 10-11-2022 ambulatory Elena Hernández Other [facility] Other Start: 10-11-2022 Telephone encounter Elena Hernández [facility] Start: 10-04-2022 End: 10-04-2022 ambulatory Anabel Hamilton Facility:[facility] Payers Date Payer Category Payer Self-pay 2019 Private Health Insurance [id number] 1960 Unknown [id number] 1960 Unknown [id number] 1960 Unknown [id number] Unknown [id number] Social History Date Type Detail Facility Unknown if ever smoked [facility] Other Sex Assigned At Sex Assigned At Bir th [facility] Other Progress note 11-22-2023 Note Date & Type Note Facility 11-22-2023 Note [facility] Note Reason for cardiology consult: New patient here to establish care for A-fib and congestive heart failure Chief Complaint: Shortness of breath HPI: Jose Luis Malin is a 63 y.o. female without prior cardiac history. Actually the patient did not see a doctor for about 5 to 6 years and she was not on any medication. She states that recently she developed shortness of breath and she thought it was related to her allergies so she started taking Claritin-D and lately she developed some sputum therefore she took Niquil but her shortness of breath became worse and she could not clear her secretions when she tried to cough it up therefore she went to the emergency room. She was found to be tachycardic with irregular rate and it was interpreted as atrial fibrillation however reviewing all her EKGs she was in multifocal atrial tachycardia, I am not sure if she had A-fib on the monitor. In any case she was started on Eliquis. Also her blood pressure was significantly high and she was started on losartan and metoprolol. Her BNP was significantly elevated and she was given Lasix. She was discharged home yesterday. Echo showed left ventricle hypertrophy however normal left ventricle systolic function and mild to moderate mitral regurgitation. Diastolic function could not be evaluated because of rhythm. Patient states that she feels much better however her blood pressure still elevated. She denies any chest discomfort at rest or with exertion. The patient is physically very active and she denies prior history of shortness of breath despite long history of smoking. She denies orthopnea or paroxysmal nocturnal dyspnea or dizziness or palpitations or legs edema. She denies any palpitation even when her heart rate was the fastest She is a smoker 2 packs/day for more than 20 years however she cut down the last year to half pack per day, she stopped for 1 month then she was back smoking about 5 cigarettes a day. She denies alcohol or illicit drugs Regarding family history her father had RI at age 67, her grandmother had irregular heart rate ROS: All systems were reviewed and they were negative except for the positive findings noted above in the history Past Medical History She has a past medical history of Abnormal ECG, Arrhythmia, Atrial fibrillation (CMS/HCC), CHF (congestive heart failure) (CMS/HCC), and Hypertension. Surgical History She has a past surgical history that includes Appendectomy. Social History She reports that she quit smoking 2 days ago. Her smoking use included cigarettes. She has a 40.00 pack-year smoking history. She has never used smokeless tobacco. She reports that she does not drink alcohol. No history on file for drug use. Family History Family History Problem Relation Name Age of Onset Heart attack Father Allergies Patient has no known allergies. Medications Current Outpatient Medications: losartan (Cozaar) 25 mg tablet, Take 25 mg by mouth in the morning., Disp: , Rfl: metoprolol tartrate (Lopressor) 25 mg tablet, Take 25 mg by mouth in the morning and at bedtime., Disp: , Rfl: apixaban (Eliquis) 5 mg tablet, Take 1 tablet (5 mg) by mouth in the morning and at bedtime., Disp: 180 tablet, Rfl: 3 furosemide (Lasix) 40 mg tablet, Take 1 tablet (40 mg) by mouth in the morning., Disp: 90 tablet, Rfl: 3 losartan (Cozaar) 50 mg tablet, Take 1 tablet (50 mg) by mouth once daily as directed., Disp: 90 tablet, Rfl: 3 metoprolol tartrate (Lopressor) 50 mg tablet, Take 1 tablet (50 mg) by mouth in the morning and at bedtime., Disp: 180 tablet, Rfl: 3 potassium chloride CR (K-Tab) 20 mEq ER tablet, Take 1 tablet (20 mEq) by mouth in the morning., Disp: 90 tablet, Rfl: 3 Last Recorded Vitals Visit Vitals BP (!) 173/103 (BP Location: Right arm, Patient Position: Sitting) Pulse 66 Ht 1.562 m (5' 1.5 ) Wt 66.2 kg (146 lb) SpO2 95% BMI 27.14 kg/m??? Smoking Status Former BSA 1.69 m??? Physical Examination: GENERAL: alert and oriented x3, well developed, in no acute distress. HEAD: atraumatic, normocephalic. EYES: JENNY, EOMI. NECK: trachea midline, no JVD present, no carotid bruits present. CARDIAC: S1, S2 present. RRR. No murmur, rubs, or gallops. RESPIRATORY: no increased effort of breathing, scattered rhonchi bilaterally. ABDOMEN: soft, nontender, nondistended. EXTREMITIES: no lower extremity edema, No rash/skin discoloration present. NEURO: strength/sensation equal and symmetric in bilateral upper and lower extremities. PSYCH: appropriate mood, affect, and judgement. Labs: Labs 11/21/2023 white blood count 9.4 hemoglobin 12.2, hematocrit 38.3, platelets 347 Sodium 137, potassium 3.1, BUN 23, creatinine 1.22, GFR 54, glucose 93, calcium 9.2, Labs from 11/20/2023 PT 10.5, INR 0.99, PTT 29.8 Magnesium 2.2 High-sensitivity troponin 79.7, 75.9, 75.2 BNP 21,500, normal less than 900 TSH 2.734 (more content not included)... [facility] Evaluation note Note Date & Type Note Facility Evaluation note No Information [facility] [employer] Other History general Narrative - Reported Note Date & Type Note Facility History general Narrative - Reported Type Surgical History appendectomy Surgical History tubal ligation Hospitalization History see above [facility] Other Summary Purpose Family History No Family History Records FoundNo Family History Records FoundNo Family History Records Found Advance Directives No Advanced Directives Records FoundNo Advanced Directives Records FoundNo Advanced Directives Records Found Additional Source Comments REASON FOR VISIT (unrecogniz ed section and content) Test results INFORMATION SOURCE (unrecogn ized section and content) DATE CREATED AUTHOR 10/24/2022 [facility] DATE CREATED AUTHOR AUTHOR'S ORGANIZ ATION 01/05/2024 [facility] DATE CREATED AUTHOR AUTHOR'S ORGANIZ ATION 01/28/2024 [facility] FOR RECORDS PERTAINING TO PATIENTS WHO ARE OR HAVE BEEN ENROLLED IN A CHEMICAL DEPENDENCY/SUBSTANCEABUSE PROGRAM, SOME INFORMATION MAY BE OMITTED. This clinical summary was aggregated from multiple sources. Caution should be exercised in using it in the provision of clinical care. This summary normalizes information from multiple sources, and as a consequence, information in this document may materially change the coding, format and clinical context of patient data. In addition, data may be omitted in some cases. CLINICAL DECISIONS SHOULD BE BASED ON THE PRIMARY CLINICAL RECORDS. [employer] provides no warranty or guarantee of the accuracy or completeness of information in this document.
[2025-01-04 16:47] VITALS: BP 220/108
[2025-01-04] MEDS: LIDOCAINE HCL 2% PF 100 MG/5 ML VIAL 10 ML INJ (18:02)
[2025-01-04] MEDS: DIPHTH,PERTUSS(ACELL),TET VAC 0.5 ML SYRINGE IM (18:03)
[2025-01-04 18:14] VITALS: BP 182/90
--- NOTE | 2025-01-05 10:09 | ED.GENADUL1 ---
HPI HPI - General Adult General Chief complaint: Wound/Laceration Stated complaint: BURN/CUT R BIG TOE Time Seen by Provider: 01/04/25 16:52 Source: patient Mode of arrival: walk-in Limitations: no limitations History of Present Illness HPI narrative: Patient is a 64-year-old female presenting to the emergency department for concerns of right foot injury. Patient dropped a glass jar on her foot, which shattered and cut the top of her right great toe. There was warm soup within the jar, and she sustained mild burn to the top of her foot as well. She is unsure of her last tetanus shot. She states he was able to ambulate after the incident. She denies any weakness in the foot. No numbness/tingling in the extremity. She denies any other injuries. Related Data Home Medications ?Medication ?Instructions ?Recorded ?Confirmed No Known Home Medications 11/20/23 11/20/23 Previous Rx's ?Medication ?Instructions ?Recorded apixaban 5 mg tablet (Eliquis) 5 mg PO BID #60 tabs 11/21/23 furosemide 40 mg tablet 40 mg PO DAILY #30 tabs 11/21/23 losartan 25 mg tablet 25 mg PO QD #30 tabs 11/21/23 metoprolol tartrate 25 mg tablet 25 mg PO BID #60 tabs 11/21/23 potassium chloride 20 mEq 20 meq PO DAILY #30 tabs 11/21/23 tablet,extended release Allergies Allergy/AdvReac Type Severity Reaction Status Date / Time No Known Drug Allergies Allergy Verified 11/20/23 08:14 Opioid HPI Opioid Management Most Recent Opioid Data: Last ORT Total Score 0 11/20/23, 12:56 Last ORT Risk Category Low Risk 11/20/23, 12:56 Review of Systems ROS Status of ROS 10 or more systems reviewed and unremarkable except as noted in history and below [facility] Medical History (Updated 01/04/25 @ 17:40 by Bowen Momin DO) Benign essential hypertension ?I10 - Essential (primary) hypertension (ICD-10) Paroxysmal atrial fibrillation ?I48.0 - Paroxysmal atrial fibrillation (ICD-10) Chronic heart failure with preserved ejection fraction (HFpEF) ?I50.32 - Chronic diastolic (congestive) heart failure (ICD-10) Acute exacerbation of CHF (congestive heart failure) ?I50.9 - Heart failure, unspecified (ICD-10) Surgical History (Updated 11/20/23 @ 13:14 by Alyse Parks RN) Hx of appendectomy ?Z90.49 - Acquired absence of other specified parts of digestive tract (ICD-10) Family History (Updated 11/20/23 @ 16:00 by Alyse Parks, RN) Other Family history of diabetes mellitus Family history of hypertension Family history of myocardial infarction Family history of stroke Social History (Updated 11/20/23 @ 13:20 by Alyse Parks RN) Within the past year, how often did you have a drink containing alcohol: 2-4 times a month Within the past year, how many standard drinks containing alcohol did you have on a typical day: 1 or 2 Within the past year, how often did you have six or more drinks on one occasion: never Total score: 0 Score interpretation: A score less than 3 is consistent with normal alcohol consumption. 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) Known occupational exposures/hazards: No Highest level of school completed/degree received: Associate degree: occupational, technical, vocational program Do you want help with school or training: No Are you now , , , , never or living with a partner: In a typical week, how many times do you talk on the telephone with family, friends, or neighbors: once per week How often do you get together with friends or relatives: never How often do you attend adventism or voodoo services: never Do you belong to any clubs or organizations such as adventism groups unions, fraternal or athletic groups, or school groups: no Total score: 1 Score interpretation: A score of less than or equal to 1 indicates the most socially isolated. Little interest or pleasure in doing things: not at all Feeling down, depressed, or hopeless: not at all Feel stressed/tense/nervous/anxious/difficulty sleeping: to some extent Life stressors: unknown source of stress Life stressor details: raising grandchild Due to disability, difficulty making decisions: No Do you think of yourself as: straight/heterosexual Gender Identity: female Exam Narrative Exam Narrative: CONSTITUTIONAL: Well-appearing, answering questions and following commands appropriately SKIN: There is a 2.5 cm linear laceration on the dorsal aspect of the right hallux. No nailbed involvement. There is mild, nonpulsatile bleeding. There is no underlying bony tenderness. There are superficial lee to the top of the right foot, including all 5 toes. There are no bulla/blisters or soft skin EYES: Sclerae white. EARS, NOSE, THROAT: Moist oral mucosa. RESPIRATORY: Nonlabored respirations. CARDIOVASCULAR: 2+ DP pulses bilaterally. Cap refill less than 2 seconds in the right hallux GASTROINTESTINAL: Abdomen is nondistended. MUSCULOSKELETAL: No deformities. Full range of motion in the right hallux. NEUROLOGIC: Patient is awake and alert. Sensation intact to light touch throughout the entire right foot. 5/5 strength of the right hallux with flexion/extension. Facies were symmetrical. Constitutional Vital Signs, click to edit/add: Last Vital Signs Temp 99.0 F 01/04/25 16:44 Pulse 85 01/04/25 16:44 Resp 18 01/04/25 16:44 BP 182/90 H 01/04/25 18:14 Pulse Ox 97 01/04/25 16:44 O2 Del Method Room Air 01/04/25 16:44 Course Vital Signs Vital signs: Vital Signs Temperature 99.0 F 01/04/25 16:44 Pulse Rate 85 01/04/25 16:44 Respiratory Rate 18 01/04/25 16:44 Pulse Oximetry 97 01/04/25 16:44 Oxygen Delivery Method Room Air 01/04/25 16:44 Temperature 99.0 F 01/04/25 16:44 Pulse Rate 85 01/04/25 16:44 Respiratory Rate 18 01/04/25 16:44 Blood Pressure 182/90 H 01/04/25 18:14 Pulse Oximetry 97 01/04/25 16:44 Oxygen Delivery Method Room Air 01/04/25 16:44 Medical Decision Making MDM Narrative Medical decision making narrative: Patient is a 64-year-old female presenting to the emergency department for evaluation of a right foot injury just prior to arrival. Vital signs arrival are significant for hypertension, otherwise were within normal limits. Examination as noted above. The right foot is neurovascuarly intact without evidence of ligamentous injury. Differential diagnosis includes right hallux laceration, underlying fracture, foreign body, and superficial lee to the foot. The lee are not deep, and does not require debridement or any emergent intervention. X-rays were obtained. Tdap shot was updated. X-rays of the right hallux independently reviewed/interpreted by myself and radiology demonstrate no acute osseous abnormalities or foreign bodies. At this time, the wound was copiously irrigated and repaired by primary intention with 4-0 nonabsorbable sutures (see procedure note for full dictation). The wound was dressed with bacitracin and sterile gauze. I do believe the patient is stable for discharge at this time. They were instructed to follow up with her PCP in the next 7 days for suture removal and wound check. Return precautions were given including any new or worsening symptoms. Patient understands and agrees to the plan. FINAL IMPRESSION: #Acute right hallux laceration #Acute superficial burn to the right foot DISPOSITION: Discharged home CONDITION: Good Imaging Data R hallux xray: Attestation: I personally reviewed and interpreted this imaging study as follows: Discharge Plan Discharge Chief Complaint: Wound/Laceration Clinical Impression: Laceration Patient Disposition: Home, Self-Care Time of Disposition Decision: 17:39 Condition: Good Mode of Transportation: Private Vehicle Prescriptions / Home Meds: No Action No Known Home Medications Eliquis 5 mg Tablet 5 mg PO BID Qty: 60 0RF losartan 25 mg Tablet 25 mg PO QD Qty: 30 0RF metoprolol tartrate 25 mg Tablet 25 mg PO BID Qty: 60 0RF furosemide 40 mg tablet 40 mg PO DAILY Qty: 30 0RF potassium chloride 20 mEq tablet extended release 20 meq PO DAILY Qty: 30 0RF Print Language: Barbadian Instructions: Laceration (ED) Referrals: Physician,Non-Staff, MD [Physician] - 1 week Discharge Date/Time: 01/04/25 18:19 Procedures ED Laceration Laceration R hallux laceration: Site: other (R hallux) Side (if applicable): right Size (cm): 2.5 Description: linear Depth: simple, single layer Anesthetic used: lidocaine 2% Anesthesia technique: local infiltration and nerve block (digital block) Amount (ml): 6 Pre-repair: irrigated extensively Skin layer closed with: other (Nylon ) Size (cm): 4-0 Number of sutures: 5 Technique: simple, interrupted
== END 2025-01-04 18:19 | disposition home or self-care (01) ==
PROVIDERS: Emergency Provider Student in an Organized Health Care Education/Training Program; PCP Family Medicine
DX: S91.111A Laceration without foreign body of right great toe without damage to nail, initial encounter (principal); W25.XXXA Contact with sharp glass, initial encounter; Z90.49 Acquired absence of other specified parts of digestive tract; F17.210 Nicotine dependence, cigarettes, uncomplicated; T25.021A Burn of unspecified degree of right foot, initial encounter; X10.1XXA Contact with hot food, initial encounter
CPT/HCPCS: 12001; 73660; 90471; 90715; 99284

== ENCOUNTER 2025-02-12 10:37 | Outpatient (OUT) | payer MEDICARE, OTHER, SELFPAY ==
--- OUTSIDE RECORDS SUMMARY | 2025-02-12 10:42 | XMS_ITS | Clinical Summary ---
Author Organization [facility] Healthcare Address [address] [place] [address] Care Team Providers Care Career Services Assistant Name Role Phone Haris Anguiano MD Primary Care Provider [phone] Alyse Saavedra LINE ASSEMBLER Unavailable [phone] Allergies No known active allergies Medications apixaban (Eliquis) 5 MG tablet Take 5 mg by mouth in the morning and 5 mg in the evening. 11/22/2023 Active furosemide (Lasix) 40 MG tablet Take 40 mg by mouth in the morning. 11/22/2023 Active metoprolol tartrate (Lopressor) 50 MG tablet Take 50 mg by mouth in the morning and 50 mg in the evening. 11/22/2023 Active potassium chloride CR (K-Tab) 20 MEQ ER tablet Take 20 mEq by mouth in the morning. 11/22/2023 Active losartan (Cozaar) 50 MG tablet Take 50 mg by mouth 11/22/2023 Active metoprolol tartrate (Lopressor) 25 MG tablet Take 25 mg by mouth in the morning and 25 mg in the evening. 11/21/2023 Active tiZANidine (Zanaflex) 4 MG tabletIndicatio ns:Sciatic nerve pain, left Take 1 tablet (4 mg) by mouth 2 (two) times a day as needed for muscle spasms 10 tablet 12/26/2023 Active Active Problems Problem Noted Date Diagnosed Date Sciatic nerve pain, left 12/19/2023 Assessment & Plan (12/19/2023 5:01 PM EDT): Prednisone 20mg Once daily for 5 days Tizanidine 4mg PO BID PRN Pain. Reviewed and confirmed with Dr. Anguiano. Acute diastolic heart failure 11/22/2023 Assessment & Plan (12/19/2023 4:32 PM EDT): Continue following with cardiology. Continue all medications as directed. 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 Continue all medications as directed. Multifocal atrial tachycardia 11/22/2023 Assessment & Plan (12/19/2023 4:32 PM EDT): Continue following with cardiology. Continue all medications as directed. Paroxysmal SVT (supraventricular tachycardia) Assessment & Plan (12/19/2023 4:32 PM EDT): Continue following with cardiology. Continue all medications as directed. Family History Medical History Relation Name Comments Heart attack Father Stroke Mother Relation Name Status Comments Father Mother Social History Tobacco Use Types Packs/Day Years Used Date Smoking Tobacco: Every Day Cigarettes Passive Smoke Exposure: Current Smokeless Tobacco: Never Tobacco Cessation:Ready to Q uit: No; Counseling Given: Yes Alcohol Use Standard Drinks/Week Comments Never 0 (1 standard drink = 0.6 oz pur e alcohol) Comments Unknown Sex and Gender Information Value Date Recorded Sex Assigned at Not on file Legal Sex Female 7:22 PM EDT Gender Identity Not on file Sexual Orientation Not on file Last Filed Vital Signs Vital Sign Reading Time Taken Comments Blood Pressure 162/100 12/19/2023 3:38 PM EDT Pulse 69 12/19/2023 3:38 PM EDT 97% O 2 Temperature 35.9 C (96.7 F) 12/19/2023 3:38 PM EDT Respiratory Rate - - Oxygen Saturation - - Inhaled Oxygen Concentration - - Weight 69.4 kg (153 lb) 12/19/2023 3:38 PM EDT Height 152.4 cm (5') 12/19/2023 3:38 PM EDT Body Mass Index 29.88 12/19/2023 3:38 PM EDT Plan of Treatment Health Maintenance Due Date Last Done Comments CT Colonography 1959 Colonoscopy 1959 Colorectal Cancer Screening 1959 FIT-DNA 1959 FIT 1959 FOBT 1959 Sigmoidoscopy 1959 Pneumococcal Vaccine: 65+ Years (1 of 2 - PCV) 978 Pap Smear 1980 Cervical Cancer Screening 1989 HPV/Cotest 1989 Mammogram 1999 Influenza Vaccine (#1) 2025 Insurance [employer] Care Teams Career Services Assistant Relationship Specialty Start Date End Date Haris Anguiano MD PCP - General Family Medicine 12/19/23 Alyse Saavedra NP Nurse Practitioner Family Medicine 12/19/23
[2025-02-12 11:28] LABS: Alanine Aminotransferase 23 U/L (14-59); Anion Gap 11.3; Blood Urea Nitrogen 20.0 mg/dL (7.0-18.0); Calcium 9.3 mg/dL (8.5-10.1); Carbon Dioxide 27.1 mmol/L (21.0-32.0); Chloride 104 mmol/L (98-107); Cholesterol 155 mg/dL (<=200); Estimated GFR (African America >60 (>=60 mL/min/1.73m^2); Estimated GFR (Non-African Ame 55 (>=60 mL/min/1.73m^2); Glucose 103 mg/dL (74-106); HDL Cholesterol 43 mg/dL (40-60); Potassium 4.4 mmol/L (3.5-5.1); Sodium 138 mmol/L (136-145); Triglycerides 172 mg/dL (<=150); VLDL CHOLESTEROL 34.4 mg/dL
[2025-02-12 11:57] LABS: Aspartate Amino Transferase 17 U/L (15-37)
== END 2025-02-12 10:38 | disposition home or self-care (01) ==
LOC: LAB 10:40
PROVIDERS: PCP Family Medicine; Visit Provider Internal Medicine Cardiovascular Disease
DX: I11.0 Hypertensive heart disease with heart failure (principal); E78.2 Mixed hyperlipidemia
CPT/HCPCS: 36415; 80048; 80061; 84450; 84460